=== PATIENT | male | born 1980 | race Caucasian/White ===

== ENCOUNTER 2016-07-25 08:14 | Emergency (ER) | payer OTHER ==
[2016-07-25 08:27] VITALS: RESP 18
[2016-07-25] MEDS ORDERED: KETOROLAC 60 MG/2 ML VIAL IM STA (08:37)
[2016-07-25] MEDS ORDERED: ORPHENADRINE 30 MG/ML 2 ML VIAL IM STA (08:37)
--- NOTE | 2016-07-25 08:42 | ED ---
Back Pain HPI - General Chief Complaint: Back Pain/Injury Stated Complaint: back pain Time Seen by Provider: 07/25/16 08:32 Source: patient, RN notes reviewed Limitations: no limitations - History of Present Illness Initial Comments: 35-year-old male presents to the emergency department with a chief complaint back pain. Patient states that he fell last Sunday when he was skateboarding. Patient states that the wind out of him. Patient states she got up and he went home. Patient states that every morning he wakes up with pain but then throughout the day loosens up and he feels better. Patient states is concerned because he just continued to have this pains without that he should be seen. Patient states there is no numbness and tingling down the legs. Patient denies a loss of bowel or bladder function. Patient states he did not hit his head and there is no other injuries from the incident. Patient states that he was concerned due to the continued pain and discomfort states that he should be evaluated.Patient denies any recent fever, chills, shortness of breath, chest pain,abdominal pain, nausea vomiting, numbness or tingling, dysuria or hematuria , constipation or diarrhea, headaches or visual changes, or any other current symptoms. - Related Data Previous Rx's Medication Instructions Recorded Ibuprofen [Motrin] 600 mg PO Q6HR PRN #20 tab 07/25/16 Allergies Allergy/AdvReac Type Severity Reaction Status Date / Time Penicillins Allergy Unknown Verified 07/25/16 08:51 narcotics Allergy Unknown Uncoded 07/25/16 08:27 Review of Systems ROS Statement: Those systems with pertinent positive or pertinent negative responses have been documented in the HPI. ROS Other: All systems not noted in ROS Statement are negative. Past Medical History Additional Past Medical History / Comment(s): Hepatitis C History of Any Multi-Drug Resistant Organisms: MRSA Date of last positivie culture/infection: 2000 MDRO Source:: Ankle then to Multiple places Past Surgical History: Orthopedic Surgery Additional Past Surgical History / Comment(s): "nose job" Past Psychological History: No Psychological Hx Reported Smoking Status: Current every day smoker Past Alcohol Use History: None Reported Past Drug Use History: None Reported General Exam Limitations: no limitations General appearance: alert, in no apparent distress Head exam: Present: atraumatic, normocephalic, normal inspection Neck exam: Present: normal inspection. Absent: tenderness, meningismus, lymphadenopathy Respiratory exam: Present: normal lung sounds bilaterally. Absent: respiratory distress, wheezes, rales, rhonchi, stridor Cardiovascular Exam: Present: regular rate, normal rhythm, normal heart sounds. Absent: systolic murmur, diastolic murmur, rubs, gallop, clicks Extremities exam: Present: normal inspection Back exam: Present: normal inspection, full ROM, tenderness (Tenderness to the lower thoracic spine and to the upper lumbar spine). Absent: CVA tenderness (R) , CVA tenderness (L), muscle spasm, paraspinal tenderness, vertebral tenderness , rash noted Neurological exam: Present: alert, oriented X3, motor sensory deficit Psychiatric exam: Present: normal affect, normal mood Skin exam: Present: warm, dry, intact, normal color. Absent: rash Course Vital Signs 07/25/16 08:22 Temperature 97.6 F Pulse Rate 75 Respiratory 18 Rate Blood Pressure 131/77 O2 Sat by Pulse 98 Oximetry Medical Decision Making - Medical Decision Making 35-year-old male presents emergency 5 chief complaint of fall on skateboard. This time x-rays are reviewed with did not show any acute fracture. This and we discussed patient'ssymptoms from a lumbar strain. We discussed heat discussed rest we discussed Motrin as prescribed. Discussed return parameters and follow-up. Patient stated that he understood and all questions have been answered. He will be discharged home. Disposition Clinical Impression: Lumbar strain Disposition: HOME SELF-CARE Condition: Stable Instructions: Acute Low Back Pain (ED), Low Back Strain (ED) Additional Instructions: Please use medication as discussed. Please follow up with family doctor if symptoms have not improved over the next two days. Please return to the emergency room if your symptoms increase or worsen or for any other concerns. Prescriptions: Ibuprofen [Motrin] 600 mg PO Q6HR PRN #20 tab PRN Reason: Pain Referrals: Ángela Vela MD [STAFF PHYSICIAN] - 1-2 days Claude Cheung DO [Doctor of Osteopathic Medicine] - 1-2 days Time of Disposition: 09:39
--- NOTE | 2016-07-25 09:33 | XR ---
EXAMINATION TYPE: XR lumbar spine 2 or 3V DATE OF EXAM: 07/25/2016 9:12 AM CLINICAL HISTORY: Skateboard injury with low back pain. TECHNIQUE: Frontal and lateral images of the lumbar spine are obtained. COMPARISON: None FINDINGS: There are 5 lumbar type vertebral bodies identified. The lumbar spine shows satisfactory alignment without evidence of acute fracture or dislocation. Vertebral body heights and disk space he ights are within normal limits. The overlying soft tissue appears unremarkable. IMPRESSION: No acute fracture or dislocation is seen in the lumbar spine.
--- NOTE | 2016-07-25 09:34 | XR ---
EXAMINATION TYPE: XR thoracic spine 2V DATE OF EXAM: 07/25/2016 9:12 AM CLINICAL HISTORY: Fall off board injury a few days ago with back pain. TECHNIQUE: Frontal, lateral, and swimmer's view of thoracic spine are obtained. COMPARISON: None. FINDINGS: Thoracic spine show satisfactory alignment without evidence of acute fracture or dislocatio n. Vertebral body heights and disc space heights are preserved. Visualized ribs are unremarkable alex aterally. IMPRESSION: No acute fracture or dislocation is seen in the thoracic spine.
[2016-07-25 09:47] VITALS: BP 125/79; PULSE 77; TEMP 98.6
== END 2016-07-25 09:52 | disposition home or self-care (01) ==
LOC: EC 08:14
DX: S39.012A Strain of muscle, fascia and tendon of lower back, initial encounter (principal); F17.200 Nicotine dependence, unspecified, uncomplicated; Z88.0 Allergy status to penicillin; Z88.5 Allergy status to narcotic agent; V00.131A Fall from skateboard, initial encounter; Y93.51 Activity, roller skating (inline) and skateboarding
CPT/HCPCS: 99283; 96372 ×2; 72070; 72100; J2360; J1885